=== PATIENT | male | born 1990 | race Hispanic/Latino ===

== ENCOUNTER 2018-01-27 19:49 | Emergency (ER) | payer OTHER ==
[2018-01-27 20:48] VITALS: BP 165/91; PULSE 66; RESP 18; TEMP 98.3; O2SAT 98
[2018-01-27] MEDS ORDERED: Tdap Vaccine 0.5 ml Vial (10-64 yrs) IM ONE ×2 (21:07→22:43)
--- NOTE | 2018-01-27 21:10 | ED PDOC ---
Lower Extremity Pain/Injury Time Seen by Provider: 01/27/18 21:07 Chief Complaint (Nursing): Abnormal Skin Integrity Chief Complaint (Provider): Abnormal Skin Integrity History Per: Patient History/Exam Limitations: no limitations Onset/Duration Of Symptoms: Mins Current Symptoms Are (Timing): Still Present Additional Complaint(s): 27 y/o male presents to the ED complaining of right foot pain, onset prior to arrival. Patient states he struck his right foot [place] between his fourth and fifth digits. Patient reports of going to [facility] prior to arrival and was advised to come to the ER for further evaluation. Tetanus vaccination not up to date. PMD: None Provided Past Medical History Reviewed: Historical Data, Nursing Documentation, Vital Signs Vital Signs: Last Vital Signs Temp 98.3 F 01/27/18 20:45 Pulse 66 01/27/18 20:45 Resp 18 01/27/18 20:45 BP 165/91 H 01/27/18 20:45 Pulse Ox 98 01/27/18 20:45 - Medical History PMH: No Chronic Diseases - Surgical History Surgical History: No Surg Hx - Family History Family History: States: No Known Family Hx - Allergies Allergies/Adverse Reactions: Allergies Allergy/AdvReac Type Severity Reaction Status Date / Time Penicillins Allergy RASH Verified 01/27/18 20:45 Review of Systems ROS Statement: Except As Marked, All Systems Reviewed And Found Negative Musculoskeletal: Positive for: Foot Pain (right foot pain ) Physical Exam - Reviewed Nursing Documentation Reviewed: Yes Vital Signs Reviewed: Yes - Physical Exam Appears: Positive for: No Acute Distress Head Exam: Positive for: ATRAUMATIC Skin: Positive for: Normal Color, Warm Eye Exam: Positive for: Normal appearance Neck: Positive for: Normal, Painless ROM Cardiovascular/Chest: Negative for: Bradycardia, Tachycardia Respiratory: Negative for: Accessory Muscle Use, Respiratory Distress Extremity: Positive for: Normal ROM, Other (2.5 cm laceration in the webspace between the 4th and 5th digit of the right foot. ). Negative for: Deformity Neurologic/Psych: Positive for: Alert, Oriented. Negative for: Motor/Sensory Deficits - ECG O2 Sat by Pulse Oximetry: 98 (RA) Pulse Ox Interpretation: Normal Medical Decision Making Medical Decision Making: Time: 2106 Plan: -- Adacel (10-64 yrs) 0.5 mL IM Scribe Attestation: Documented by Jonathan Solis, acting as a scribe for Elisabeth Hylton PA-C. Provider Scribe Attestation: All medical record entries made by the Scribe were at my direction and personally dictated by me. I have reviewed the chart and agree that the record accurately reflects my personal performance of the history, physical exam, medical decision making, and the department course for this patient. I have also personally directed, reviewed, and agree with the discharge instructions and disposition. Disposition - Clinical Impression Clinical Impression: Foot laceration - Patient ED Disposition Is Patient to be Admitted: No - Disposition Disposition: Routine/Home Disposition Time: 22:20 Condition: FAIR Additional Instructions: RETURN TO ED/PMD/URGENT CARE IN 2 DAYS FOR WOUND CHECK RETURN TO ED/PMD/URGENT CARE IN 8-10 DAYS FOR REMOVAL OF SUTURES. Instructions: Laceration Repair With Stitches (DC) Procedure: Wound Repair - Time Performed Time Performed: 22:18 - Time Out Time Out: Site verified - Consent Obtained Consent obtained: Verbal - Performed by Performed by: Mid-level Provider - Indications Indication(s):: Laceration - Location Location:: Right, Foot Toe:: Right, 4, 5 Shape:: Linear Dimensions Length cm: 2.5cm Depth:: Epidermis - Anesthetic Technique Anesthetic Technique: Local Local/Regional Anesthetic:: Lidocaine 1% - Debris Debris:: None - Irrigated Irrigated with ml of normal saline: 150ml - Complexity Complexity:: Simple (one layer) - Wound repair method Sutures:: # (six), Size (4-0 prolene), Technique (interrupted) - Muscle repiar layer closed with Muscle repair layer closed with:: Tetanus up to date - Patient tolerated procedure Patient Tolerated Procedure:: Well
[2018-01-27] MEDS ORDERED: Lidocaine 1% w Epi 1:100,000 Inj ONE (21:30)
[2018-01-27] MEDS ORDERED: Lidocaine 1% 20 MG/2 ML PF AMP ONE (21:45)
== END 2018-01-27 22:56 | disposition home or self-care (01) ==
LOC: H.ER 19:49
DX: S91.311A Laceration without foreign body, right foot, initial encounter (principal); W22.8XXA Striking against or struck by other objects, initial encounter; Z88.0 Allergy status to penicillin; Z23 Encounter for immunization